=== PATIENT | female | born 1960 | race Two or more races ===

== ENCOUNTER 2022-07-08 11:27 | Emergency (ER) | payer OTHER ==
[~2022-07-08] VITALS: Ht 144.8 cm; Wt 51.7 kg
[2022-07-08 12:26] VITALS: BP 162/63
[2022-07-08] MEDS ORDERED: ACETAMINOPHEN 500 MG TAB PO ONE (13:15)
[2022-07-08] MEDS ORDERED: ACET1CAP14 PO (13:29)
== END 2022-07-08 13:55 | disposition home or self-care (01) ==
LOC: ER 11:27
DX: S52.502A Unspecified fracture of the lower end of left radius, initial encounter for closed fracture (principal); I10 Essential (primary) hypertension; Z88.6 Allergy status to analgesic agent; Z86.73 Personal history of transient ischemic attack (TIA), and cerebral infarction without residual deficits; W18.00XA Striking against unspecified object with subsequent fall, initial encounter; Y93.89 Activity, other specified; Y92.89 Other specified places as the place of occurrence of the external cause; Y99.8 Other external cause status
CPT/HCPCS: 29125; 73110